=== PATIENT | male | born 1980 | race Caucasian/White ===

== ENCOUNTER 2021-08-12 20:05 | Emergency (ER) | payer BC ==
[2021-08-12 20:22] VITALS: BP 119/68
[2021-08-12] MEDS ORDERED: ONDANSETRON 4 MG/2 ML VIAL IVP STA (21:17)
[2021-08-12] MEDS ORDERED: IBUPROFEN 600 MG TAB PO STA (21:17)
[2021-08-12] MEDS ORDERED: ACETAMINOPHEN TAB 500 MG TAB PO STA (21:17)
[2021-08-12] MEDS ORDERED: SODIUM CHLORIDE 0.9% 1,000 ML IV STA (21:17)
[2021-08-12] MEDS ORDERED: SODIUM CHLORIDE 0.9% 50 ML IVPB ONE (21:30)
[2021-08-12] MEDS ORDERED: CASIRIVIMAB (REGN10933) (EUA) 600 MG, IMDEVIMAB (REGN10987) (EUA) 600 MG in SODIUM CHLO... IVPB ONE (21:45)
[2021-08-12 23:03] VITALS: PULSE 95; RESP 18; TEMP 100
--- NOTE | 2021-08-12 23:20 | ED ---
General Adult HPI - General Chief complaint: Recheck/Abnormal Lab/Rx Stated complaint: covid+ Time Seen by Provider: 08/12/21 21:00 Source: patient, RN notes reviewed Mode of arrival: ambulatory Limitations: no limitations - History of Present Illness Initial comments: Patient is a 40-year-old male presenting to the emergency department with concerns of worsening Covid symptoms. Patient tested positive about 6 days ago, his symptoms started 7 days ago. He has been having body aches, chills, symptoms seem to worsen a lot yesterday. He did not take any Tylenol since early this morning. He denies any chest pain or shortness of breath, he feels fatigued. He did have a virtual doctors visit and they recommended coming in to the ER for antibiotic infusion. Patient has no further complaints. Upon arrival to the ER he is febrile 101.1, pulse is 108, rest of vitals normal. - Related Data Allergies Allergy/AdvReac Type Severity Reaction Status Date / Time Penicillins Allergy Unknown Verified 08/12/21 20:23 Sulfa (Sulfonamide Allergy Unknown Verified 08/12/21 20:23 Antibiotics) Review of Systems ROS Statement: Those systems with pertinent positive or pertinent negative responses have been documented in the HPI. ROS Other: All systems not noted in ROS Statement are negative. Past Medical History Past Medical History: No Reported History Additional Past Medical History / Comment(s): covid History of Any Multi-Drug Resistant Organisms: None Reported Past Surgical History: No Surgical Hx Reported Past Psychological History: No Psychological Hx Reported Smoking Status: Never smoker Past Alcohol Use History: Occasional Past Drug Use History: None Reported General Exam - General Exam Comments Initial Comments: GENERAL: Patient is well-developed and well-nourished. Patient is nontoxic and in no acute distress. HEAD: Atraumatic, normocephalic. EYES: Pupils equal round and reactive to light, extraocular movements intact, sclera anicteric, conjunctiva are normal. Eyelids were unremarkable. ENT: Oropharynx clear without exudates. Moist mucous membranes. NECK: Normal range of motion, supple without lymphadenopathy or JVD. LUNGS: Unlabored respirations. Breath sounds clear to auscultation bilaterally and equal. No wheezes rales or rhonchi. HEART: Regular rate and rhythm without murmurs, rubs or gallops. ABDOMEN: Soft, nontender, normoactive bowel sounds. No guarding, no rebound. No masses appreciated. MUSCULOSKELETAL: Normal extremities with adequate strength and normal range of motion, no pitting or edema. No clubbing or cyanosis. NEUROLOGICAL: Patient is alert and oriented x 3. SKIN: Warm, Dry, normal turgor, no rashes or lesions noted. Limitations: no limitations Course Vital Signs 08/12/21 08/12/21 20:18 22:56 Temperature 101.1 F H 100 F H Pulse Rate 108 H 95 Respiratory 20 18 Rate Blood Pressure 119/68 O2 Sat by Pulse 95 95 Oximetry Medical Decision Making - Medical Decision Making Patient is a 32-year-old male here with Covid symptoms for the past 6 days. He did arrive febrile, slightly tachycardia. His exam is unremarkable. Patient is me cough occasions for monoclonal antibodies, he did agree to these. Patient received Tylenol and Motrin as well as some fluids along with antibodies. Does feel improvement his symptoms. He is stable for discharge. Return parameters were discussed with him and he verbalized understanding. Case discussed with Dr. Tinoco. Disposition Clinical Impression: COVID-19 Disposition: HOME SELF-CARE Condition: Stable Instructions (If sedation given, give patient instructions): Coronavirus Disease 2019 (COVID-19) Additional Instructions: Please return to the Emergency Department if symptoms worsen or any other concerns. Alternate between Tylenol and ibuprofen for fever and pain control. Increase your fluids. Follow-up with your primary care. Is patient prescribed a controlled substance at d/c from ED?: No Referrals: Oren Schofield MD [Primary Care Provider] - 1-2 days Time of Disposition: 23:00
== END 2021-08-12 23:06 | disposition home or self-care (01) ==
LOC: EC 20:05
DX: U07.1 COVID-19 (principal); Z88.0 Allergy status to penicillin; Z88.2 Allergy status to sulfonamides
CPT/HCPCS: 99283; 96365; 96375; J2405; Q0243